=== PATIENT | female | born 2000 | race Two or more races ===

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

== ENCOUNTER 2019-10-03 23:20 | Emergency (ER) | payer SELFPAY ==
[~2019-10-03] VITALS: Ht 162.6 cm; Wt 96.0 kg
[~2019-10-03 23:20] MED LIST: ACET500T64 PO; IBUP-1902 PO; MULT1CAP19 PO
[2019-10-03 23:24] VITALS: BP 134/104
[2019-10-04] MEDS ORDERED: IBUPROFEN 600 MG TABLET PO ONE
--- NOTE | 2019-10-04 00:03 | NUR ---
Pt report she missed a step on the stairs and fell and felt a loud crack in her left foot. Pt has moderate swelling to left foot with cms intact and good sensation and distal pulse. Pt able to wiggle toes. Ice applied. Awaiting further orders.
[2019-10-04] MEDS ORDERED: IBUPROFEN 600 MG TABLET ONE (00:06)
--- NOTE | 2019-10-04 00:11 | NUR ---
Report to Komal WATT
--- NOTE | 2019-10-04 00:34 | NUR ---
ASSUMED CARE OF PT
== END 2019-10-04 02:10 | disposition home or self-care (01) ==
LOC: ED 10-04 01:05
DX: S93.432A Sprain of tibiofibular ligament of left ankle, initial encounter (principal); S93.492A Sprain of other ligament of left ankle, initial encounter; S93.622A Sprain of tarsometatarsal ligament of left foot, initial encounter; G89.11 Acute pain due to trauma; W01.0XXA Fall on same level from slipping, tripping and stumbling without subsequent striking against object, initial encounter; Y93.89 Activity, other specified; Y92.098 Other place in other non-institutional residence as the place of occurrence of the external cause; Y99.8 Other external cause status
CPT/HCPCS: 99284